=== PATIENT | male | born 1995 | race Caucasian/White ===

== ENCOUNTER 2018-01-18 11:02 | Emergency (ER) | payer OTHER ==
[~2018-01-18] VITALS: Ht 182.9 cm; Wt 83.9 kg
[2018-01-18] MEDS ORDERED: NOHOMEMEDICATIONS (11:11)
[2018-01-18 13:31] VITALS: BP 120/73
== END 2018-01-18 13:32 | disposition home or self-care (01) ==
LOC: M.ERS 11:02
DX: S02.2XXA Fracture of nasal bones, initial encounter for closed fracture (principal); S02.5XXA Fracture of tooth (traumatic), initial encounter for closed fracture; S00.83XA Contusion of other part of head, initial encounter; Y08.89XA Assault by other specified means, initial encounter; Y93.89 Activity, other specified; Y92.89 Other specified places as the place of occurrence of the external cause; Y99.8 Other external cause status